=== PATIENT | female | born 1995 | race Caucasian/White ===

== ENCOUNTER 2016-09-06 17:38 | Emergency (ER) | payer BC ==
[~2016-09-06] VITALS: Ht 167.6 cm; Wt 64.5 kg
[~2016-09-06 17:38] MED LIST: BCPILLS PO; HYDR-4079 PO; NAPR1TAB9 PO; OXYC1TAB3 PO; RBX500 PO
[2016-09-06 17:40] VITALS: TEMP 36.9; Ht 167.6 cm; Wt 64.5 kg
[2016-09-06] MEDS ORDERED: VALA500T60 PO (17:52)
--- NOTE | 2016-09-06 18:31 | EMERGENCY ROOM VISIT NOTE ---
History First contact with patient: 17:52 Chief Complaint: SKIN PROBLEM Stated Complaint: PAINFUL ULCERS ALL AROUND MOUTH, TROUBLE EATING History of Present Illness The patient is a 21 year old female who presents to the Emergency Room with complaints of painful ulcers in her mouth. The patient reports that she first developed painful ulcerations in her mouth earlier last year. She was seen here at that time and prescribed Valtrex, which completely resolved her symptoms at that time. She reports the symptoms returned a few weeks ago. She was seen here at that time and was prescribed Valtrex again. She states she has been taking this but the sores have continued. She states that they are located throughout the mouth. She rates her discomfort a 9/10. She reports she is unable to eat due to the severe pain. Since developing the ulcers, the patient has also been seen by 3 different providers at her primary care provider 's office, a walk-in clinic, a dentist and an oral surgeon. She states that her primary care provider most recently referred her to a hydroelectric production manager. The patient has a prescription for hydrocodone that she takes for headaches and has been taking this without relief. She denies any fevers, difficulty swallowing, abdominal pain, nausea or vomiting. Review of Systems A complete 10-point Review of Systems was discussed with the patient, with pertinent positives and negatives listed in the History of Present Illness. All remaining Review of Systems questions can be considered negative unless otherwise specified. Past Medical/Surgical History Medical Problems: (1) Asthma (2) Esophageal Reflux (3) Traumatic brain injury Family History Cancer Diabetes mellitus Heart disease Hypertension Lung disease Social History Smoking Status: Never Smoker Alcohol Use: none Drug Use: none Marital Status: single Housing Status: lives with family Occupation Status: employed Current/Historical Medications Scheduled Control Pills ( Control Pills), 1 TAB PO DAILY Valacyclovir (Valtrex), 500 MG PO TID Scheduled PRN Hydrocodone/Acetaminophen 10MG/325MG ([place] 10MG/325MG), 1 TAB PO BID PRN for Pain Methocarbamol (Methocarbamol), 500 MG PO BID PRN for Muscle Spasms Naproxen (Aleve), 220 MG PO BID PRN for Pain Allergies Coded Allergies: Amoxicillin (Unverified Allergy, Unknown, UNKNOWN, 08/19/16) Penicillins (Verified Allergy, Unknown, 08/19/16) Uncoded Allergies: MAGIC MOUTHWASH (Adverse Reaction, Severe, TONGUE AND LIPS SWELLING, 09/06/16 ) Physical Exam Vital Signs Date Time Temp Pulse Resp B/P Pulse Ox O2 Delivery O2 Flow Rate FiO2 09/06/16 18:50 76 20 120/73 100 09/06/16 17:40 36.9 113 20 139/96 98 Room Air Physical Exam VITALS: Vitals are noted on the nurse's note and reviewed by myself. Vital signs stable. GENERAL: This is a 21-year-old female, in no acute distress, nondiaphoretic, well-developed well-nourished. SKIN: Capillary reflex less than 2 seconds. MOUTH: There are multiple small ulcerations of the buccal mucosa. There is one small ulceration under the tongue. They have mild surrounding erythema. There is no drainage or swelling. NECK: Supple without nuchal rigidity. No lymphadenopathy. NEURO: Patient was alert and oriented to person place and time. Medical Decision & Procedures Medical Decision Differential diagnosis includes HSV, aphthous ulcers, hand foot mouth disease, among others. The patient was evaluated as above. She does have ulcerations within the mouth which appear to be most consistent with HSV or possibly aphthous ulcers. The patient has seen 9 different providers for these ulcerations. She has had cultures done which were negative. The patient has been prescribed Valtrex, prednisone and viscous lidocaine. The patient already received prescriptions for hydrocodone from her neurologist and has received 60 tablets of hydrocodone last month and 24 tablets of oxycodone last month. I do not feel that there is any other treatment that I can provide at this time. I did discuss with the patient and her mother the importance of continuity of care with the primary care provider. The patient verbalized understanding and was discharged home in good condition. Impression Primary Impression: Mouth ulcers Departure Information Dispostion Home / Self-Care Condition GOOD Referrals Jason Giordano D.O.Int.Med. (PCP) Patient Instructions A Signature Page, My [facility] Additional Instructions Follow-up with your primary care provider. Continue medications as prescribed. For pain control, you can use the following [id number] medicines (if >12 yo): - Regular strength (325mg/tab) Tylenol (acetaminophen) 2 tabs every 4-6 hours as needed. Do not exceed 12 tablets in a 24 hour period. Avoid taking more than 4 grams (4000 mg) of Tylenol per day. This includes any other sources of acetaminophen you may take on a regular basis. - Regular strength (200 mg/tab) Advil (ibuprofen) 1-2 tabs every 4-6 hours as needed. Do not exceed a dose of 3200 mg per day.
[2016-09-06 18:50] VITALS: BP 120/73; PULSE 76; O2SAT 100
== END 2016-09-06 18:53 | disposition home or self-care (01) ==
LOC: C.EDB 17:40 → C.EDD 18:53
DX: K12.1 Other forms of stomatitis (principal); Z87.820 Personal history of traumatic brain injury; J45.909 Unspecified asthma, uncomplicated

== ENCOUNTER → 2016-09-10 | Outpatient (CLI) | payer BC ==
[~2016-09-10] MED LIST changes: -OXYC1TAB3 PO; +VALA500T60 PO
== END | disposition home or self-care (01) ==
LOC: C.PAPS 10:16
PROVIDERS: ATTEND Obstetrics & Gynecology
DX: Z01.419 Encounter for gynecological examination (general) (routine) without abnormal findings (principal)

== ENCOUNTER → 2017-05-21 | Outpatient (CLI) | payer BC ==
--- NOTE | 2017-05-21 15:40 | DIAGNOSTIC IMAGING REPORT ---
CHEST 2 VIEWS ROUTINE CLINICAL HISTORY: R05 Cough dyspnea COMPARISON STUDY: No previous studies for comparison. FINDINGS: The bones soft tissues and hemidiaphragms are normal. The cardiomediastinal silhouette is normal. The lungs are clear. The pulmonary vasculature is normal. IMPRESSION: Negative chest. The above report was generated using voice recognition software. It may contain grammatical, syntax or spelling errors. Electronically signed by: Jose M Gilman M.D. 05/21/2017 3:39 PM Dictated Date/Time: 05/21/2017 3:39 PM
== END | disposition home or self-care (01) ==
LOC: C.RADBC 15:22
PROVIDERS: ATTEND Physician Assistant
DX: R05 Cough (principal)

== ENCOUNTER → 2017-10-20 | Outpatient (CLI) | payer OTHER | END | disposition home or self-care (01) | LOC: C.PAPS 09:35 | PROVIDERS: ATTEND Obstetrics & Gynecology | DX: Z12.4 Encounter for screening for malignant neoplasm of cervix (principal) ==

== ENCOUNTER → 2017-10-20 | Outpatient (CLI) | payer OTHER | END | disposition home or self-care (01) | LOC: C.LABSPEC 17:32 | PROVIDERS: ATTEND Obstetrics & Gynecology | DX: Z11.3 Encounter for screening for infections with a predominantly sexual mode of transmission (principal) ==

== ENCOUNTER 2025-01-22 10:15 | Inpatient (IN) ==
--- NOTE | 2025-01-22 11:33 | History & Physical Report ---
Date of Service January 22, 2025 Assessment & Plan (1) Gestational diabetes mellitus (GDM) affecting , antepartum: (2) Encounter for supervision of normal intrauterine in primigravida, antepartum: (3) SROM (spontaneous rupture of membranes): Plan Aditi is a 29-year-old G1, P0 currently at 37 weeks 3 days gestational age presents with spontaneous rupture of membranes. 1. Fetus: Category 1 tracing 2. Labor: Confirmed spontaneous rupture of membranes. Will allow a few hours to see if labor ensues if not we will start oxytocin per normal protocol 3. GBS negative 4. Vitals within normal limits 5. Diet controlled gestational diabeteswill monitor History of Present Illness Primary Care Provider: Yolie Tovar MD Aditi is a 29-year-old G1, P0 currently at 37 weeks 3 days gestational age presents with spontaneous rupture of membranes at 9 AM this morning. Denying painful contractions. Noted good movement. GDM w/16wk glucola *Begin monthly Growth US's @24wks IUGR - RESOLVED 01/13 *Twice weekly NST/DVP@Dx *Weeklyl doppler@Dx *Growth US Q4wk @Dx *Deliver [id number] (unless abnml flow) *Deliver 37wks (less than 3rd%) *rec mfm consult due to early iugr (12/23/24 @ [facility] [place]) OB Labs: Blood Type B Positive 07/16/24 Antibody Screen NEGATIVE 07/16/24 Hgb 12.5 g/dl (12.0-16.0) 11/19/24 Hct 38.0 % (37.0-47.0) 11/19/24 MCV 86.4 fL (80.0-100.0) 07/16/24 Plt Count 231 K/uL (130-400) 07/16/24 Rubella IgG Antibody Equivocal (Immune) L 07/16/24 Treponema pallidum Ab Negative (Negative) 11/19/24 Hep Bs Antigen Negative (Negative) 07/16/24 Hepatitis C Antibody Negative (Negative) 07/16/24 HIV 1&2 Ab/P24 Ag 4thGn Negative (Negative) 07/16/24 Glucose 1 Hr 50 gm 183 mg/dl (70-130) H 08/23/24 OB Optional Labs: Chlamydia trachomatis RNA Not Detected (NotDetected) 07/16/24 Neisseria gonorrhoeae RNA Not Detected (NotDetected) 07/16/24 Thyroid Stimulating Hormone (TSH) 2.212 uIu/ml (0.300-4.500) 03/30/24 Labs Reviewed: Declines genetics--mln Allergies Allergy/AdvReac Type Severity Reaction Status Date / Time amoxicillin Allergy Mild Rash Verified 01/22/25 10:38 rimegepant [From [facility] ODT] AdvReac Severe migraines Verified 01/22/25 10:38 worsedn and increased neuropathy Penicillins Allergy Unknown Rash Uncoded 01/22/25 10:38 MAGIC MOUTHWASH AdvReac Severe TONGUE AND Uncoded 01/22/25 10:38 LIPS SWELLING/FEVER Divalproex Sodium CPSP AdvReac Unknown Swelling Uncoded 01/22/25 10:38 of Lip/Tongue/Throat duloxetine AdvReac Unknown Swelling Uncoded 01/22/25 10:38 of Lip/Tongue/Throat Gabapentin TABS AdvReac Unknown Gastrointestinal Uncoded 01/22/25 10:38 Upset hydromorphone AdvReac Unknown Gastrointestinal Uncoded 01/22/25 10:38 Upset oxyCODONE HCl CAPS AdvReac Unknown Gastrointestinal Uncoded 01/22/25 10:38 Upset zonisamide AdvReac Unknown Unknown Uncoded 01/22/25 10:38 Home Medications Medication Instructions Recorded Confirmed Type albuterol sulfate 90 mcg/actuation 1 inh inhalation QID PRN shortness 06/10/23 01/22/25 Rx aerosol inhaler of breath or wheezing #6.7 grams cyclobenzaprine 5 mg tablet 5 mg PO TID PRN Pain #90 tabs 11/04/23 01/22/25 Rx [id number] 1 tab PO DAILY 07/09/24 01/22/25 History [ Plus] digital therapeutic,MARIA R device #1 ea 08/23/24 01/21/25 Rx acetone (urine) test (Ketone Urine #50 ea 09/09/24 01/21/25 Rx Test strips) blood sugar diagnostic (GungrooTouch #150 ea 09/09/24 01/21/25 Rx Verio test strips) blood-glucose meter (GungrooTouch #1 ea 09/09/24 01/21/25 Rx Verio Reflect Meter) lancets 33 gauge (OneTouch Delica #150 ea 09/09/24 01/21/25 Rx Plus Lancet) metoclopramide HCl 10 mg tablet 10 mg PO Q6H PRN nausea and 10/21/24 01/22/25 Rx vomiting #20 tabs Patient History Medical History (Updated 01/22/25 @ 11:34 by Silas Dorado MD) Gestational diabetes mellitus Diet controlled IUGR, IUGR resolved at 36 weeks Varicella vaccination Post concussion syndrome 09/2022 Chronic migraine Fatigue Low back pain Lumbosacral radiculopathy Neck pain Occipital neuralgia of right side Tachycardia Vision problems s/p concussion double vision Asthma Traumatic brain injury (2014) Herniated disc "PARTIAL HERNIATED DISC" GERD (gastroesophageal reflux disease) Neuralgia [place] Migraine Asthma A CHILD WITH EXERCISE Surgical History History of esophagogastroduodenoscopy (EGD) History of colonoscopy History of tooth extraction History of tonsillectomy Family History Grandmother (Maternal) Family history of diabetes mellitus Colorectal cancer Grandfather (Maternal) Family hx of colon cancer Mother Migraine headache Afib Hypertension Sister Endometriosis Denies family history of Ovarian cancer Breast cancer Social History (Updated 01/22/25 @ 10:36 by Marnie Garcia RN) Smoking Status: Never smoker Second Hand Exposure: No; Do You Dip or Chew Tobacco: No; Hx Alcohol Use: No Hx Substance Use: No Preferred Language: Czech Communication Ability: Effective 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 Required: No Beliefs That Will Affect Care: None marital status: marital status details: Juan F Boyce [phone]) [phone] Current Living Situation: Spouse Current Living Situation Comment: Lives with and 4 cats- changing litter current occupational status: employed 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 Feels Safe at Home: Yes Safety Concerns: Feels Safe At This Time Childhood Exposure to Second-Hand Smoke: No Diet: regular caffeine: Yes Physical Activity Frequency Comment: Goes to Gym Seatbelt Use: always Sunscreen Use: Yes Gender Identity: Female Assistive Devices: None Physical Exam Genitourinary: normal external appearance Manual OB Exam: + cervical dilation 2 cm, + cervical effacement 90%, + station and + amniotic fluid bloody, nitrazine positive and ferning present OB Exam Monitor Tracing: + external FHT monitor used, + external uterine monitor used, + category I and + normal FHT variability; no early decelerations present, no late decelerations present and no variable decelerations Results & Data Vital Signs (Past 12 Hours) Vital Signs Temp Pulse Resp BP 01/22/25 10:33 37.0 C 20 01/22/25 10:26 106 H 133/87 Coding Level of Care Code None Diagnoses Gestational diabetes mellitus (GDM) affecting , antepartum O24.419 Encounter for supervision of normal intrauterine in primigravida, antepartum Z34.00 SROM (spontaneous rupture of membranes)
[2025-01-22 11:48] LABS: Hematocrit (blood only) 39.5 % (37.0-47.0); Hemoglobin 13.4 g/dl (12.0-16.0); Mean Corpuscular Hemoglobin 28.8 pg (25.0-34.0); Mean Corpuscular Hgb Conc 33.9 g/dL (32.0-36.0); Mean Corpuscular Volume 84.8 fL (80.0-100.0); Mean Platelet Volume 12.3 fL (9.4-12.4); Platelet Count 185 K/uL (130-400); RDW Coefficient of Variation 13.4 % (11.5-14.5); RDW Standard Deviation 41.3 fL (36.4-46.3); Red Blood Count 4.66 M/uL (4.20-5.40); White Blood Count 15.81 K/ul (4.8-10.8)
--- NOTE | 2025-01-22 15:48 | Anesthesiology Consultation ---
Date of Service January 22, 2025 Assessment & Plan (1) Encounter for pre-operative examination: Chart Review Chart Review: Acceptable Risk for Labor Epidural History Height/Weight Height: 5 ft 6 in Weight: 92.079 kg Allergies Allergy/AdvReac Type Severity Reaction Status Date / Time amoxicillin Allergy Mild Rash Verified 01/22/25 10:38 rimegepant [From [facility] ODT] AdvReac Severe migraines Verified 01/22/25 10:38 worsedn and increased neuropathy Penicillins Allergy Unknown Rash Uncoded 01/22/25 10:38 MAGIC MOUTHWASH AdvReac Severe TONGUE AND Uncoded 01/22/25 10:38 LIPS SWELLING/FEVER Divalproex Sodium CPSP AdvReac Unknown Swelling Uncoded 01/22/25 10:38 of Lip/Tongue/Throat duloxetine AdvReac Unknown Swelling Uncoded 01/22/25 10:38 of Lip/Tongue/Throat Gabapentin TABS AdvReac Unknown Gastrointestinal Uncoded 01/22/25 10:38 Upset hydromorphone AdvReac Unknown Gastrointestinal Uncoded 01/22/25 10:38 Upset oxyCODONE HCl CAPS AdvReac Unknown Gastrointestinal Uncoded 01/22/25 10:38 Upset zonisamide AdvReac Unknown Unknown Uncoded 01/22/25 10:38 Medications Home Medications Medication Instructions Recorded Confirmed Last Taken albuterol sulfate 90 mcg/actuation 1 inh inhalation QID PRN shortness 06/10/23 01/22/25 Unknown aerosol inhaler of breath or wheezing #6.7 grams cyclobenzaprine 5 mg tablet 5 mg PO TID PRN Pain #90 tabs 11/04/23 01/22/25 01/19/25 [id number]-ucn-[id number] 1 tab PO DAILY 07/09/24 01/22/25 01/21/25 [ Plus] digital therapeutic,MARIA R device #1 ea 08/23/24 01/21/25 Unknown acetone (urine) test (Ketone Urine #50 ea 09/09/24 01/21/25 Unknown Test strips) blood sugar diagnostic (HypiosTouch #150 ea 09/09/24 01/21/25 Unknown Verio test strips) blood-glucose meter (HypiosTouch #1 ea 09/09/24 01/21/25 Unknown Verio Reflect Meter) lancets 33 gauge (OneTouch Delica #150 ea 09/09/24 01/21/25 Unknown Plus Lancet) metoclopramide HCl 10 mg tablet 10 mg PO Q6H PRN nausea and 10/21/24 01/22/25 Unknown vomiting #20 tabs Active Medications Generic Name Dose Route Start Last Admin Trade Name Freq PRN Reason Stop Dose Admin Lactated Ringer's 1,000 mls @ 125 mls/hr 01/22/25 12:00 01/22/25 15:46 Lr IV 01/24/25 11:59 999 mls/hr .Q8H PRN Administration L&D Protocol Protocol Past Medical History Medical History Gestational diabetes mellitus Diet controlled IUGR, IUGR resolved at 36 weeks Varicella vaccination Post concussion syndrome 09/2022 Chronic migraine Fatigue Low back pain Lumbosacral radiculopathy Neck pain Occipital neuralgia of right side Tachycardia Vision problems s/p concussion double vision Asthma Traumatic brain injury (2014) Herniated disc "PARTIAL HERNIATED DISC" GERD (gastroesophageal reflux disease) Neuralgia [place] Migraine Asthma A CHILD WITH EXERCISE Past Family History Family History Grandmother (Maternal) Family history of diabetes mellitus Colorectal cancer Grandfather (Maternal) Family hx of colon cancer Mother Migraine headache Afib Hypertension Sister Endometriosis Pt states sister had to have part of bowel removed due to endometriosis Denies family history of Ovarian cancer Breast cancer Past Surgical History Surgical History History of esophagogastroduodenoscopy (EGD) History of colonoscopy History of tooth extraction History of tonsillectomy Social History Smoking Status: Never smoker Do You Dip or Chew Tobacco: No Hx Alcohol Use: No Hx Substance Use: No substance use type: does not use Physical Exam Vital Signs Last Vital Signs Temp 36.7 C 01/22/25 12:59 Pulse 102 H 01/22/25 15:46 Resp 20 01/22/25 10:33 BP 124/76 01/22/25 15:41 Pulse Ox 96 01/22/25 15:46 Testing Laboratory Results 01/22/25 11:37
--- NOTE | 2025-01-22 21:47 | Delivery Summary ---
Vaginal Delivery Summary Date of Service January 22, 2025 Vaginal Delivery Summary and 2nd Degree LAC Patient progressed to 10 cm dilated, 100% effaced and +2 station pushed over intact perineum with epidural anesthesia and delivered a viable with weight and Apgars pending. Head of the delivered without difficulty quickly followed by shoulders and body. There is noted to be a loose nuchal cord and a body cord that were delivered through. was delivered to m aternal abdomen and a 1 minute delayed cord clamping was initiated. Cord was then doubly clamped and cut and remained on maternal abdomen. Cord blood obtained and attention turned to deliver the placenta which delivered intact with three-vessel cord gentle cord traction. Inspection of the perineum vagina and cervix there is noted to be a second degree perineal laceration which was repaired with 3-0 Vicryl and traditional crown stitch. Needle sponge and instrument counts are correct at the completion of the case. Both mother and stable in the immediate postdelivery timeframe. No complications noted and blood loss per QBL. [facility] Vaginal Delivery Charge Delivery Type Details: and 2nd Degree LAC
--- NOTE | 2025-01-23 08:55 | Obstetrical Progress Note ---
Date of Service January 23, 2025 Assessment & Plan (1) Encounter for care and examination after delivery: Day 1 status post vaginal delivery. Patient doing well. Continue with routine care Subjective Ambulation: ambulating normally Voiding: no voiding problems Passing Gas:: Yes Diet Tolerance:: regular diet Lochia:: Moderate Physical Exam Constitutional WD/WN, vitals as above Respiratory normal respiratory effort; no respiratory distress and no labored breathing Cardiovascular Extremities: no calf tenderness Gastrointestinal (Abdomen) Inspection/Auscultation: abdomen normal to inspection; abdomen not distended Percussion/Palpation: abdomen soft; abdomen nontender, no guarding and abdomen not rigid Genitourinary OB Exam Abdomen: + fundal height Fundus: + firm and + relation to umbilicus (Below); not tender or not boggy Results & Data Vital Signs (Past 12 Hours) Vital Signs Temp Pulse Pulse Resp BP BP Pulse Ox 01/23/25 04:30 36.7 C 80 18 108/71 97 01/23/25 00:00 36.5 C 102 H 16 117/75 96 01/22/25 23:39 16 01/22/25 23:39 120 H 114/58 L 01/22/25 23:24 103 H 105/56 L 01/22/25 23:09 16 01/22/25 23:09 108 H 107/61 01/22/25 22:54 100 H 106/65 01/22/25 22:39 18 01/22/25 22:39 93 H 114/61 01/22/25 22:24 18 01/22/25 22:24 97 H 119/64 01/22/25 22:09 18 01/22/25 22:09 110 H 119/63 01/22/25 21:54 18 01/22/25 21:54 103 H 122/64 01/22/25 21:46 118 H 96 01/22/25 21:41 104 H 97 01/22/25 21:39 18 01/22/25 21:39 114 H 119/70 01/22/25 21:36 112 H 96 01/22/25 21:31 120 H 95 01/22/25 21:30 104 H 94 01/22/25 21:26 122 H 94 01/22/25 21:24 121 H 01/22/25 21:24 119 H 126/56 L 94 01/22/25 21:21 138 H 95 01/22/25 21:18 135 H 94 01/22/25 21:16 145 H 96 01/22/25 21:11 155 H 95 01/22/25 21:09 153 H 127/61 01/22/25 21:06 160 H 96 01/22/25 21:05 154 H 94 01/22/25 21:01 157 H 93 01/22/25 21:00 131 H 94 01/22/25 20:56 122 H 95 O2 Del Method 01/23/25 04:30 Room Air 01/23/25 00:00 Room Air 01/22/25 23:39 01/22/25 23:39 01/22/25 23:24 01/22/25 23:09 01/22/25 23:09 01/22/25 22:54 01/22/25 22:39 01/22/25 22:39 01/22/25 22:24 01/22/25 22:24 01/22/25 22:09 01/22/25 22:09 01/22/25 21:54 01/22/25 21:54 01/22/25 21:46 01/22/25 21:41 01/22/25 21:39 01/22/25 21:39 01/22/25 21:36 01/22/25 21:31 01/22/25 21:30 01/22/25 21:26 01/22/25 21:24 01/22/25 21:24 01/22/25 21:21 01/22/25 21:18 01/22/25 21:16 01/22/25 21:11 01/22/25 21:09 01/22/25 21:06 01/22/25 21:05 01/22/25 21:01 01/22/25 21:00 01/22/25 20:56
--- NOTE | 2025-01-23 10:56 | Anesthesia Procedure Note ---
Date of Service January 23, 2025 Anesthesia Post Epidural Note Vital Signs Vital Signs: Temp Pulse Resp BP Pulse Ox O2 Del Method 36.5 C 86 16 138/84 99 Room Air 01/23/25 07:32 01/23/25 07:32 01/23/25 07:32 01/23/25 07:32 01/23/25 07:32 01/23/25 07:32 Pain Intensity Back: Pain Intensity: 5 Notes Mental Status: alert / awake / arousable and participated in evaluation Nausea / Vomiting: adequately controlled Pain: adequately controlled Airway Patency, RR, SpO2: stable & adequate BP & HR: stable & adequate Hydration State: stable & adequate Neuraxial Anesthesia: was administered and sensory block is resolving Anesthetic Complications: no major complications apparent Epidural: Removed without complications and With tip intact
[2025-01-24 07:09] VITALS: BP 108/73; RESP 18; TEMP 97.7; O2SAT 97
--- NOTE | 2025-01-24 07:42 | Obstetrical Progress Note ---
Date of Service January 24, 2025 Assessment & Plan (1) Encounter for care and examination after delivery: (2) Perineal laceration during delivery: Plan dAiti is a 29yo , day 2 s/p with 2nd deg perineal lac. Doing well. Continue routine pp care. Encourage ambulation. Continue and pumping as tolerated and supplementing as needed May continue ibuprofen as needed Home today, followup in 6wks Admission and Anticipated Discharge Date Admission Date: January 22, 2025 Supervising Physician Co-Signing Physician Notes Patient seen with resident and agree with the above findings and plan. Stable for discharge Subjective Aditi is a 29yo , day 2 s/p with 2nd deg perineal lac. Feels well, some abdominal and vulval soreness Ambulation: yes Void: urinating, no BM yet Gas: yes Lochia: small Diet: tolerating well Feeding plan: breast, currently pumping and supplementing as needed Sx: none other than improving soreness Physical Exam Physical Exam: Gen: no acute distress CV: RRR, no m/r/g Resp: clear to auscultation b/l GI/Abd: +BS, fundus firm 1cm inf to umbilicus, mildly tender to palpation LE: no edema, nontender to palpation Results & Data Vital Signs (Past 12 Hours) Vital Signs Temp Pulse Resp BP Pulse Ox O2 Del Method 01/24/25 07:08 36.5 C 102 H 18 108/73 97 Room Air 01/23/25 23:15 36.6 C 78 16 117/75 98 Room Air Resident Activity Tracking Resident Involvement: Resident Care Provided Care Provided: OB Delivery (2) Perineal laceration during delivery Perineal laceration degree: second degree Qualified Code(s): O70.1 - Second degree perineal laceration during delivery
[2025-01-24 13:12] VITALS: PULSE 90
== END 2025-01-24 12:50 | disposition home or self-care (01) ==
LOC: OPB 10:15 → 4S1 10:19 → 4E2 01-23 00:05